=== PATIENT | female | born 1980 | race Caucasian/White ===

== ENCOUNTER 2021-08-23 21:58 | Emergency (ER) | payer BC ==
[~2021-08-23] VITALS: Ht 160 cm; Wt 127.3 kg
[2021-08-23 22:27] VITALS: BP 143/84
--- NOTE | 2021-08-23 22:40 | PHYS DOC ---
Past Medical History Past Medical History: Other Additional Past Medical Histor: AORTIC STENOSIS (TACHO MOISE APRN) Past Surgical History: Tubal ligation (TACHO MOISE APRN) Smoking Status: Current Every Day Smoker Alcohol Use: None Drug Use: None (TACHO MOISE APRN) General Adult EDM: Chief Complaint: ANKLE PROBLEM HPI: HPI: Patient is a 41-year-old female who presents to the emergency department for right lateral ankle pain and swelling that started after she rolled her ankle on some [employer] rocks at work today at 1700. Patient rates her pain 9 out of 10. No treatment prior to arrival. She reports that she has been able to bear weight and ambulate since. She denies hitting her head or loss of consciousness following her fall. Reports increased pain with movement but denies any decreased sensation to extremity. (TACHO MOISE APRN) Review of Systems: Review of Systems: Musculoskeletal: See HPI Integument: See HPI Neurologic: See HPI (TACHO MOISE APRN) Heart Score: C/O Chest Pain: N/A Risk Factors: Risk Factors: DM, Current or recent (<one month) smoker, HTN, HLP, family history of CAD, obesity. Risk Scores: Score 0 - 3: 2.5% MACE over next 6 weeks - Discharge Home Score 4 - 6: 20.3% MACE over next 6 weeks - Admit for Clinical Observation Score 7 - 10: 72.7% MACE over next 6 weeks - Early Invasive Strategies (TACHO MOISE APRN) Allergies: Allergies: Allergies Coded Allergies Type Severity Reaction Last Updated Verified No Known Drug Allergies 07/22/15 No (TACHO MOISE APRN) Physical Exam: PE: Constitutional: Well developed, well nourished, no acute distress, non-toxic appearance. [] HENT: Normocephalic, atraumatic, bilateral external ears normal, oropharynx moist, no oral exudates, nose normal. [] Eyes: PERRL, EOMI, conjunctiva normal, no discharge. [] Neck: Normal range of motion, no stridor Cardiovascular: Normal peripheral perfusion Lungs & Thorax: Normal work of breathing, no tachypnea Abdomen: Soft and flat Skin: Warm, dry, no erythema, no rash. [] Back: Normal range of motion Extremities: No tenderness, no cyanosis, no clubbing, ROM intact, no edema. [] Right ankle: Swelling noted to lateral aspect of right ankle, range of motion intact, neuro intact, no obvious deformity, no wounds or ecchymosis Neurologic: Alert and oriented X 3, normal motor function, normal sensory function, no focal deficits noted. [] Psychologic: Affect normal, judgement normal, mood normal. [] (TACHO MOISE APRN) Current Patient Data: Vital Signs: Vital Signs Date Time Temp Pulse Resp B/P (MAP) Pulse Ox O2 Delivery O2 Flow Rate FiO2 08/23/21 22:27 98.2 92 20 143/84 (103) 95 Room Air 98.2 (TACHO MOISE APRN) EKG: EKG: [] (TACHO MOISE APRN) Radiology/Procedures: Radiology/Procedures: []ROCEDURE: ANKLE RIGHT 3V Exam: Right ankle 3 views INDICATION: Rolled ankle TECHNIQUE: Frontal, lateral and oblique views of the right ankle Comparisons: None FINDINGS: Soft tissue swelling surrounding the ankle. Bone mineralization is normal. No acute or healed fractures. Joint spaces are well-maintained. IMPRESSION: Soft tissue swelling surrounding the ankle without underlying osseous abnormality identified. Electronically signed by: Oscar Perez MD (08/23/2021 11:08 PM) [facility] DICTATED and SIGNED BY: OSCAR PEREZ MD DATE: 08/23/21 [id number] (TACHO MOISE APRN) Course & Med Decision Making: Course & Med Decision Making Pertinent Labs and Imaging studies reviewed. (See chart for details) [] Patient presents emergency department for right lateral ankle pain and swelling after she rolled it today on some [employer] rocks. X-ray was performed that showed no acute findings. Patient's ankle placed in an Adam wrap. Patient educated on the rice protocol. Patient advised to take Tylenol and/ibuprofen for pain. I discussed with patient all findings and diagnostic testing as well as the need to follow-up with PCP for further evaluation and treatment or return to the ER if any new or worsening symptoms. Strict return precautions were also discussed at length. Patient voiced understanding and agreement with the plan. Patient is hemodynamically stable at the time of disposition. (TACHO MOISE APRN) Course & Med Decision Making Patients Care and treatment plan provided by ER Nurse Practitioner. I was available for consult. Patient's chart reviewed. (MALISSA HIGGINS I DO) Romana Disclaimer: Dragmonika Disclaimer: This electronic medical record was generated, in whole or in part, using a voice recognition dictation system. (TACHO MOISE APRN) Departure Departure Impression: Primary Impression: Ankle sprain Qualified Codes: S93.401A - Sprain of unspecified ligament of right ankle, initial encounter Disposition: HOME / SELF CARE / HOMELESS Condition: GOOD Referrals: NO PCP (PCP) Patient Instructions: RICE - Routine Care for Injuries Additional Instructions: You are seen in the emergency department today for right ankle pain after he rolled it today. X-ray was performed that showed no acute findings. This will likely improve over time. Your symptoms may be improved by something called the rice protocol. This is rest, ice, compression, elevation. Please follow-up when doing intense exercises that may make the pain worse. Sometimes gentle stretching can provide relief, but be careful to injury. It is important to perform gentle range of motion exercises to prevent stiff joints and chronic pain. Use ice packs over the affected areas to help decrease your pain. For the first 24 hours you can apply ice 20 minutes on 20 minutes off for 4 times per day. Sometimes compression such as the use of an Adam wrap can help with the swelling. You may also elevate the affected area to help with the swelling. You can take Tylenol and/or ibuprofen for your pain at home. Follow-up with your primary care provider tomorrow regarding your ER visit. Return to the emergency department if you develop increased pain, increased swelling, decreased range of motion, inability to bear weight or walk, decreased sensation to your extremity. TACHO MOISE APRN Aug 23, 2021 22:40 MALISSA HIGGINS DO Aug 24, 2021 06:09
--- NOTE | 2021-08-23 23:10 | RAD ---
Exam: Right ankle 3 views INDICATION: Rolled ankle TECHNIQUE: Frontal, lateral and oblique views of the right ankle Comparisons: None FINDINGS: Soft tissue swelling surrounding the ankle. Bone mineralization is normal. No acute or healed fractur es. Joint spaces are well-maintained. IMPRESSION: Soft tissue swelling surrounding the ankle without underlying osseous abnormality identified. Electronically signed by: Oscar Friedman MD (08/23/2021 11:08 PM) [facility]
== END 2021-08-24 00:18 | disposition home or self-care (01) ==
LOC: ER 21:58
DX: S93.401A Sprain of unspecified ligament of right ankle, initial encounter (principal); F17.200 Nicotine dependence, unspecified, uncomplicated; X50.9XXA Other and unspecified overexertion or strenuous movements or postures, initial encounter; Y93.89 Activity, other specified; Y92.89 Other specified places as the place of occurrence of the external cause; Y99.8 Other external cause status
CPT/HCPCS: 73610; 99284; A6450